=== PATIENT | male | born 1960 | race Hispanic/Latino ===

== ENCOUNTER 2022-03-03 23:24 | Emergency (ER) | payer BC, OTHER ==
[~2022-03-03] VITALS: Ht 177.8 cm; Wt 84.4 kg
[2022-03-03] MEDS ORDERED: DEXAMETHASONE SOD PHOS 10 MG/1 ML VIAL IM ONE (23:45)
[2022-03-03] MEDS ORDERED: AZITHROMYCIN250 MG PO (23:48)
[2022-03-03] MEDS ORDERED: PROAIR HFA INH8.5 GM INH (23:48)
[2022-03-03] MEDS ORDERED: ALBUTEROL/IPRATROPIUM 3 ML NEB ONE (23:58)
[2022-03-03] MEDS ORDERED: DEXAMETHASONE SOD PHOS INJ 4 MG/ML SDV ONE (23:58)
[2022-03-04] MEDS ORDERED: ALBUTEROL/IPRATROPIUM 3 ML NEB NEB ONE
[2022-03-04 00:19] VITALS: BP 114/95
== END 2022-03-04 00:19 | disposition home or self-care (01) ==
LOC: FSED 23:43
DX: R05.9 Cough, unspecified (principal); J20.9 Acute bronchitis, unspecified; R06.02 Shortness of breath; F17.210 Nicotine dependence, cigarettes, uncomplicated
CPT/HCPCS: 96372; 99282; J1100

== ENCOUNTER 2022-03-11 09:53 | Inpatient (IN) | payer OTHER ==
[2022-03-11] VITALS (32 sets, daily range): BP systolic 96–119; BP diastolic 76–97
[~2022-03-11] VITALS: Ht 175.3 cm; Wt 85.7 kg
[~2022-03-11 09:53] MED LIST: AZITHROMYCIN250 MG PO; PROAIR HFA INH8.5 GM INH
[2022-03-11] MEDS ORDERED: ALBUTEROL SULF 0.083% NEB SOLN 3 ML NEB NEB STA (10:30)
[2022-03-11] MEDS ORDERED: ALBUTEROL SULF 0.083% NEB SOLN 3 ML NEB ONE (11:15)
[2022-03-11] MEDS ORDERED: MONTELUKAST SOD10 MG PO (11:24)
[2022-03-11] MEDS ORDERED: HYDROXYZINE HCL25 MG PO (11:24)
[2022-03-11] MEDS ORDERED: BREZTRI AEROS10.7 GM (11:24)
[2022-03-11] MEDS ORDERED: PANTOPRAZOLE SO40 MG PO (11:24)
[2022-03-11] MEDS ORDERED: DEXAMETHASONE SOD PHOS INJ 4 MG/ML SDV IV ONE (12:30)
[2022-03-11] MEDS ORDERED: CEFTRIAXONE 1 GM VIAL ONE (12:47)
[2022-03-11] MEDS ORDERED: DEXAMETHASONE SOD PHOS INJ 4 MG/ML SDV ONE (12:47)
[2022-03-11] MEDS ORDERED: DILTIAZEM HCL VIAL 5 ML ONE ×2 (13:14→14:51)
[2022-03-11] MEDS ORDERED: DILTIAZEM HCL 5 MG/ML 5 ML VIAL IV ONE (13:15)
[2022-03-11] MEDS ORDERED: AMIODARONE 900MG 500 ML IV STA (13:23)
[2022-03-11] MEDS ORDERED: AMIODARONE HCL 100 ML IV ONE (13:44)
[2022-03-11] MEDS ORDERED: AMIODARONE 900MG 500 ML IV ONE (13:44)
[2022-03-11] MEDS ORDERED: IOPAMIDOL 370 MG/ML 100 ML INFUS..BTL INJ ONE (14:46)
[2022-03-11 16:29] LABS: CREATINE KINASE 74 IU/L (30-200)
[2022-03-11 22:19] LABS: CREATINE KINASE 67 IU/L (30-200)
[2022-03-12] VITALS (25 sets, daily range): BP systolic 97–119; BP diastolic 76–104
[2022-03-12] MEDS ORDERED: ACETAMINOPHEN 325 MG TAB PO PRN (06:45)
[2022-03-12] MEDS ORDERED: SENNOSIDES 8.6 MG TAB PO PRN (06:45)
[2022-03-12] MEDS ORDERED: ONDANSETRON HCL INJ 2MG/ML 2ML 2 MG/ML VIAL IV PRN (06:45)
[2022-03-12 07:03] LABS: CREATINE KINASE 51 IU/L (30-200)
[2022-03-12] MEDS: PANTOPRAZOLE SOD 40 MG TABEC PO SCH (07:50)
[2022-03-12] MEDS ORDERED: DIGOXIN 0.125 MG TAB PO SCH (09:00)
[2022-03-12] MEDS: MONTELUKAST SODIUM 10 MG TAB PO SCH (09:49)
[2022-03-12] MEDS: FUROSEMIDE 20 MG TAB PO SCH (09:49)
[2022-03-12] MEDS ORDERED: METOPROLOL TARTRATE 25 MG TAB PO SCH (12:00)
[2022-03-12] MEDS ORDERED: AMIODARONE 900MG 900 MG in Premix Bag 1 BAG IV SCH (13:30)
[2022-03-12] MEDS ORDERED: METOPROLOL TARTRATE INJ 1 MG/ML VIAL IV ONE (13:30)
[2022-03-12] MEDS: ENOXAPARIN SODIUM INJ 100 MG/ML SYR SC SCH ×2 (13:49→21:28)
[2022-03-12] MEDS: METOPROLOL TARTRATE 25 MG TAB PO SCH (17:39)
[2022-03-13] VITALS (24 sets, daily range): BP systolic 99–123; BP diastolic 77–101
[2022-03-13] MEDS: METOPROLOL TARTRATE 25 MG TAB PO SCH ×4 (00:03→17:23)
[2022-03-13 04:58] LABS: BASOPHILS % 0.1 % (0.0-1.0); EOSINOPHILS % 0.3 % (0.0-6.0); HEMATOCRIT 46.9 % (38.2-49.6); LYMPHOCYTES # (AUTO) 1.2 (1.0-3.2); LYMPHOCYTES % 8.1 % (18.0-39.1); MEAN CORPUSCULAR HEMOGLOBIN 28.2 pg (28-32); MEAN CORPUSCULAR VOLUME 88.2 fL (81-99); MONOCYTES # (AUTO) 1.2 (0.2-0.8); MONOCYTES % 7.7 % (4.4-11.3); NEUTROPHILS # (AUTO) 12.5 (2.1-6.9); NEUTROPHILS % 82.9 % (38.7-80.0); PLATELET COUNT 210 x10e3/uL (140-360); RED BLOOD COUNT 5.32 x10e6/uL (4.3-5.7); RED CELL DISTRIBUTION WIDTH 14.7 % (11.7-14.4)
[2022-03-13 05:15] LABS: ANION GAP 15.7 mmol/L (8-16); CALCIUM 8.6 mg/dL (8.4-10.2); CREATININE, SERUM 1.43 mg/dL (0.72-1.25); POTASSIUM 4.7 mmol/L (3.5-5.1)
[2022-03-13] MEDS: PANTOPRAZOLE SOD 40 MG TABEC PO SCH (08:23)
[2022-03-13] MEDS: FUROSEMIDE 20 MG TAB PO SCH (09:17)
[2022-03-13] MEDS: MONTELUKAST SODIUM 10 MG TAB PO SCH (09:17)
[2022-03-13] MEDS: ENOXAPARIN SODIUM INJ 100 MG/ML SYR SC SCH ×2 (09:17→21:00)
[2022-03-13] MEDS: ALPRAZOLAM 0.25 MG TAB PO SCH ×2 (10:04→17:23)
[2022-03-13 11:08] LABS: PHOSPHORUS 4.1 MG/DL (2.3-4.7)
[2022-03-13 18:31] LABS: CLARITY,URINE SL CLOUDY (CLEAR); COLOR,URINE AMBER (YELLOW); KETONES,URINE NEGATIVE (NEGATIVE); LEUKOCYTE ESTERASE ,URINE NEGATIVE (NEGATIVE); NITRITE,URINE NEGATIVE (NEGATIVE); PROTEIN,URINE DIPSTICK TRACE (NEGATIVE); URINE UROBILINOGEN 0.2 mg/dL (0.2 - 1)
[2022-03-13 18:37] LABS: BACTERIA,URINE FEW /HPF
[2022-03-13] MEDS ORDERED: AMIODARONE 900MG 500 ML IV SCH (19:15)
[2022-03-14] VITALS (38 sets, daily range): BP systolic 91–113; BP diastolic 58–92
[2022-03-14] MEDS: METOPROLOL TARTRATE 25 MG TAB PO SCH ×4 (00:33→18:13)
[2022-03-14] MEDS: ALPRAZOLAM 0.25 MG TAB PO SCH ×3 (00:34→16:33)
[2022-03-14 09:32] LABS: BASOPHILS % 0.3 % (0.0-1.0); EOSINOPHILS # (AUTO) 0.2 (0.0-0.4); EOSINOPHILS % 1.5 % (0.0-6.0); HEMATOCRIT 45.4 % (38.2-49.6); HEMOGLOBIN 14.7 g/dL (14.0-18.0); LYMPHOCYTES # (AUTO) 1.7 (1.0-3.2); LYMPHOCYTES % 14.5 % (18.0-39.1); MEAN CORPUSCULAR HEMOGLOBIN 28.3 pg (28-32); MEAN CORPUSCULAR HGB CONC 32.4 g/dL (31-35); MEAN CORPUSCULAR VOLUME 87.5 fL (81-99); MONOCYTES # (AUTO) 0.7 (0.2-0.8); MONOCYTES % 5.9 % (4.4-11.3); NEUTROPHILS % 77.3 % (38.7-80.0); PLATELET COUNT 157 x10e3/uL (140-360); RED BLOOD COUNT 5.19 x10e6/uL (4.3-5.7); RED CELL DISTRIBUTION WIDTH 14.5 % (11.7-14.4)
[2022-03-14 09:59] LABS: ANION GAP 13.3 mmol/L (8-16); CREATININE, SERUM 1.08 mg/dL (0.72-1.25); MAGNESIUM 1.9 MG/DL (1.3-2.1); PHOSPHORUS 2.9 MG/DL (2.3-4.7); POTASSIUM 4.3 mmol/L (3.5-5.1)
[2022-03-14] MEDS ORDERED: POVIDONE IODINE 0.05% 0.05 % ML PO ONE (12:22)
[2022-03-14] MEDS ORDERED: PROPOFOL IV EMULSION 10 MG/ML 20 ML VIAL ONE (12:22)
[2022-03-14] MEDS ORDERED: SODIUM CHLORIDE 0.9% 1000ML 1,000 ML ONE (12:24)
[2022-03-14] MEDS ORDERED: BENZOCAINE 20% SPR 60 ML CAN ONE (12:24)
[2022-03-14] MEDS ORDERED: MIDAZOLAM HCL 5 MG/ML VIAL ONE (12:51)
[2022-03-14] MEDS ORDERED: FENTANYL CITRATE/PF 100MCG/2 ML INJ ONE (12:51)
[2022-03-14] MEDS: MONTELUKAST SODIUM 10 MG TAB PO SCH (16:14)
[2022-03-14] MEDS: PANTOPRAZOLE SOD 40 MG TABEC PO SCH (16:14)
[2022-03-14] MEDS: ENOXAPARIN SODIUM INJ 100 MG/ML SYR SC SCH ×2 (16:14→20:17)
[2022-03-14] MEDS: FUROSEMIDE 20 MG TAB PO SCH (16:14)
[2022-03-14] MEDS: AMIODARONE HCL 200 MG TAB PO SCH ×2 (16:14→20:17)
[2022-03-15] VITALS (10 sets, daily range): BP systolic 94–117; BP diastolic 71–93
[2022-03-15] MEDS: ALPRAZOLAM 0.25 MG TAB PO SCH ×2 (01:00→08:19)
[2022-03-15] MEDS: METOPROLOL TARTRATE 25 MG TAB PO SCH ×2 (06:17)
[2022-03-15] MEDS: PANTOPRAZOLE SOD 40 MG TABEC PO SCH (07:34)
[2022-03-15] MEDS: AMIODARONE HCL 200 MG TAB PO SCH (08:18)
[2022-03-15] MEDS: FUROSEMIDE 20 MG TAB PO SCH (08:19)
[2022-03-15] MEDS: MONTELUKAST SODIUM 10 MG TAB PO SCH (08:19)
[2022-03-15] MEDS: ENOXAPARIN SODIUM INJ 100 MG/ML SYR SC SCH (08:19)
[2022-03-15 10:29] LABS: BASOPHILS # (AUTO) 0.1 (0.0-0.1); BASOPHILS % 0.5 % (0.0-1.0); EOSINOPHILS # (AUTO) 0.2 (0.0-0.4); HEMATOCRIT 44.7 % (38.2-49.6); HEMOGLOBIN 14.8 g/dL (14.0-18.0); LYMPHOCYTES # (AUTO) 0.9 (1.0-3.2); LYMPHOCYTES % 8.1 % (18.0-39.1); MEAN CORPUSCULAR HEMOGLOBIN 28.5 pg (28-32); MEAN CORPUSCULAR HGB CONC 33.1 g/dL (31-35); MEAN CORPUSCULAR VOLUME 86.1 fL (81-99); MONOCYTES # (AUTO) 0.6 (0.2-0.8); MONOCYTES % 5.7 % (4.4-11.3); NEUTROPHILS # (AUTO) 8.8 (2.1-6.9); NEUTROPHILS % 83.1 % (38.7-80.0); PLATELET COUNT 141 x10e3/uL (140-360); RED BLOOD COUNT 5.19 x10e6/uL (4.3-5.7)
[2022-03-15 11:02] LABS: CALCIUM 7.8 mg/dL (8.4-10.2); CREATININE, SERUM 0.96 mg/dL (0.72-1.25); PHOSPHORUS 2.2 MG/DL (2.3-4.7)
[2022-03-15] MEDS ORDERED: RIVAROXABAN 20 MG TABLET PO SCH (17:00)
[2022-03-16] MEDS ORDERED: METOPROLOL SUCCINATE 50 MG TAB XL PO SCH (09:00)
[2022-03-16] MEDS ORDERED: LOSARTAN POTASSIUM 25 MG TAB PO SCH (09:00)
== END 2022-03-15 12:52 | disposition home or self-care (01) | DRG 308 ==
LOC: FSED 10:16 → ERHOLD 13:30 → UNDOADMIN 13:30 → ICU 14:00
PROVIDERS: ADMIT Internal Medicine; ATTEND Internal Medicine
DX: I48.91 Unspecified atrial fibrillation (principal); I50.23 Acute on chronic systolic (congestive) heart failure; J90 Pleural effusion, not elsewhere classified; N17.9 Acute kidney failure, unspecified; K76.0 Fatty (change of) liver, not elsewhere classified; I11.0 Hypertensive heart disease with heart failure; Z20.822 Contact with and (suspected) exposure to COVID-19; Z79.899 Other long term (current) drug therapy
CPT/HCPCS: 36415; 71046; 71260; 80048; 80053; 81001; 82550; 82553; 83735; 83880; 84100; 84443; 84484; 85025; 85379; 87086; 93005; 93306; 93307; 93312; 93325; 94799; 96374; 96376; 99251; 99284; J0696; J1100; J1650; J2250; J3010; J7030; Q9967; U0002